=== PATIENT | female | born 1965 | race African-American/Black ===

== ENCOUNTER 2018-09-06 14:45 | Emergency (ER) | payer MEDICARE, OTHER ==
[~2018-09-06] VITALS: Ht 167.6 cm; Wt 68.0 kg
[~2018-09-06 14:45] MED LIST: BENZ1TAB7 PO; DOCU-100 PO; FLUV50TA3 PO; LITHTAB PO; NORE7TAB PO; RISP2TAB22 PO
[2018-09-06 15:09] VITALS: BP 98/60
== END 2018-09-06 16:57 | disposition left against medical advice (07) ==
LOC: ER 16:40
DX: Z53.21 Procedure and treatment not carried out due to patient leaving prior to being seen by health care provider (principal)

== ENCOUNTER 2023-03-06 11:04 | Emergency (ER) | payer MEDICARE, OTHER ==
[~2023-03-06] VITALS: Ht 162.6 cm; Wt 59.0 kg
[~2023-03-06 11:04] MED LIST changes: -BENZ1TAB7 PO; +BENZ1TAB78 PO; +FLUV50TA23 PO; -FLUV50TA3 PO; -RISP2TAB22 PO; +RISP2TAB85 PO
[2023-03-06 11:29] LABS: BASOPHILS % 0.3 % (0.0-2.0); EOSINOPHILS % 0.1 % (0.0-5.0); HEMATOCRIT. 37.2 % (36.0-48.0); HEMOGLOBIN. 12.2 g/dL (12.0-16.0); LYMPHOCYTES % 14.6 % (20.0-50.0); MEAN CORPUSCULAR HEMOGLOBIN 30.3 pg (28.0-32.0); MEAN CORPUSCULAR VOLUME 92.5 fL (81.0-99.0); MEAN PLATELET VOLUME 10.7 fl (7.4-10.4); MONOCYTES % 4.3 % (2.0-8.0); NEUTROPHILS % 80.7 % (40.0-76.0); PLATELET 168 x1000/uL (130-400); RED BLOOD CELL COUNT 4.03 mill/uL (4.2-5.4); RED CELL DISTRIBUTION WIDTH 12.3 % (11.6-14.6)
[2023-03-06 11:45] LABS: CHLORIDE 109 mEq/L (98-107)
[2023-03-06 20:45] LABS: CLARITY URINE CLEAR (CLEAR); COLOR URINE YELLOW (YELLOW); KETONES URINE TRACE (NEGATIVE); LEUKOCYTE ESTERASE URINE NEGATIVE (NEGATIVE); NITRITE URINE NEGATIVE (NEGATIVE); OCCULT BLOOD URINE 1+ (NEGATIVE); PROTEIN URINE NEGATIVE (NEGATIVE); SPECIFIC GRAVITY URINE 1.023 (1.005-1.030); UROBILINOGEN URINE 0.2 E.U./dL (0.2-1.0)
[2023-03-06] MEDS ORDERED: PHEN51CR24 TP (21:19)
[2023-03-06] MEDS ORDERED: DOCU-138 MT (21:19)
[2023-03-06 23:23] VITALS: BP 125/82
== END 2023-03-06 23:29 | disposition home or self-care (01) ==
LOC: ER 11:04
DX: K64.4 Residual hemorrhoidal skin tags (principal); Z79.899 Other long term (current) drug therapy
CPT/HCPCS: 36415; 80053; 81003; 81025; 82270; 85025; 99285